=== PATIENT | female | born 1995 | race Caucasian/White ===

== ENCOUNTER → 2016-05-13 | Outpatient (CLI) | payer BC ==
--- NOTE | 2016-05-13 14:56 | DX ---
Lumbar spine with flexion and extension 4 views HISTORY: Worsening low back pain with decreased mobility. FINDINGS: Intervertebral disc at L4-L5 shows minimal loss of height, suggesting early disc degenerati on. The other interspaces have normal thickness. No fractures are found. No evidence of spondylolysis . No instability with flexion and extension. Sacroiliac joints are normal. Lumbar segmentation is sta ndard. Intrauterine device is incidentally noted. 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
== END ==
LOC: FIMAGING 11:07
PROVIDERS: ATTEND Family Medicine
DX: M51.16 Intervertebral disc disorders with radiculopathy, lumbar region (principal)